=== PATIENT | female | born 1980 | race African-American/Black ===

== ENCOUNTER 2021-03-25 16:54 | Emergency (ER) | payer MEDICAID ==
[~2021-03-25] VITALS: Ht 170.2 cm; Wt 68.0 kg
[2021-03-25 18:17] LABS: HEMATOCRIT 31.4 % (31.2-41.9); MEAN CORPUSCULAR HEMOGLOBIN 27.1 uug (24.7-32.8); MEAN CORPUSCULAR VOLUME 81.7 fL (75.5-95.3); PLATELET COUNT (AUTO) 303 K/uL (179-408)
[2021-03-25 18:28] LABS: POTASSIUM 3.9 mmol/L (3.5-5.1)
[2021-03-25 18:46] LABS: BILIRUBIN,DIRECT 0.1 mg/dL (0.0-0.2); BILIRUBIN,TOTAL 0.4 mg/dL (0.2-1.0); TOTAL PROTEIN, SERUM 7.8 g/dL (6.4-8.2)
[2021-03-25 19:21] LABS: ETHANOL < 3 MG/DL (0-0)
[2021-03-25 19:22] LABS: ACETAMINOPHEN 4.2 ug/mL (10-30)
[2021-03-25 19:25] LABS: *BILIRUBIN,URIN NEGATIVE (NEGATIVE); *BLOOD, URINE 3+ (NEGATIVE); *COLOR,URINE YELLOW (YELLOW); *KETONES,URINE NEGATIVE (NEGATIVE); *UROBILINOGEN,URINE 0.2 E.U./dl (NORMAL); LEUKOCYTE ESTERASE ,URINE NEGATIVE (NEGATIVE); NITRITE, URINE NEGATIVE (NEGATIVE); UGLUCOSE NEGATIVE (NEGATIVE)
[2021-03-25 19:31] LABS: *CLARITY,URINE SLIGHTLY HAZY (CLEAR); RBC,URINE 20-50 /HPF (0-3)
--- NOTE | 2021-03-25 19:31 | NUR ---
Patient is medically cleared by Dr. Greenwood. Paged PET team for eval. Spoke with Eboni OROSCO, states she will come to evaluate patient.
[2021-03-25 19:32] LABS: BACTERIA,URINE FEW /HPF (NONE SEEN); SQUAMOUS EPITHELIAL CELL,UR FEW /HPF (NONE SEEN)
[2021-03-25 19:32] LABS: THYROID STIMULATING HORMONE 1.336 mIU/mL (0.358-3.740)
[2021-03-25 19:35] LABS: *AMPHETAMINE, URINE NEGATIVE (NEGATIVE); *CANNABINOID, URINE NEGATIVE (NEGATIVE); *COCCAINE, URINE NEGATIVE (NEGATIVE); *OPIATE, URINE NEGATIVE (NEGATIVE); *PHENCYCLIDINE SCREEN,URINE NEGATIVE (NEGATIVE)
[2021-03-25] MEDS ORDERED: LORAZEPAM 1 MG TABLET PO ONE (20:00)
--- NOTE | 2021-03-25 20:17 | NUR ---
Pinky at bedside to evaluate patient.
[2021-03-25] MEDS ORDERED: LORAZEPAM 1 MG TABLET ONE (20:39)
--- NOTE | 2021-03-25 20:58 | NUR ---
Patient clinicals & face sheet faxed to [facility]. Fax # [phone]. . Patient will go voluntary.
--- NOTE | 2021-03-25 23:23 | NUR ---
Received transfer info from Art: [facility] ([place]) Dr. Morales Rm 322B Phone# for report: [phone] [facility] ambulance ETA pickup @ 0200 Report given to Alberto at [facility]
--- NOTE | 2021-03-26 02:10 | NUR ---
[facility]: another 15-20 min ETA pickup
--- NOTE | 2021-03-26 02:33 | NUR ---
[facility] [address] here to transport patient to [facility] ([place]). All belongings given to transport farm management agent. Vitals are stable.
== END 2021-03-26 02:35 ==
LOC: ER 17:04
DX: R45.851 Suicidal ideations (principal); F31.9 Bipolar disorder, unspecified; F41.9 Anxiety disorder, unspecified; Z87.448 Personal history of other diseases of urinary system; Z20.822 Contact with and (suspected) exposure to COVID-19; R94.31 Abnormal electrocardiogram [ECG] [EKG]
CPT/HCPCS: 36415; 70030-TC; 71045; 84443; 85025; 85730; 93005; A4663; G0480